=== PATIENT | male | born 1950 | race Caucasian/White ===

== ENCOUNTER 2016-08-05 10:25 | Day surgery (SDC) | payer BC ==
[2016-08-03 15:03] VITALS: BMI 37.8
[~2016-08-05 10:25] MED LIST: LACTATED RINGERS 1,000 ML IV SCH; LIDOCAINE 1% 20 ML VIAL (10MG/ML) FOR IV START INTRADERMA PRN
[2016-08-05 11:15] VITALS: TEMP 97.3
[2016-08-05] MEDS ORDERED: PROPOFOL 10 MG/ML 20 ML VIAL IV ONE (11:38)
--- NOTE | 2016-08-05 11:56 | P.PCN ---
Date of Procedure: 08/05/16 Procedure(s) Performed: BRIEF HISTORY: Patient is a 65-year-old pleasant white male, scheduled for an elective colonoscopy as a part of evaluation of prior history of colon polyps. Last colonoscopy was in 2010. PROCEDURE PERFORMED: Colonoscopy. PREOPERATIVE DIAGNOSIS: History of colon polyps. IV sedation per Anesthesia. PROCEDURE: After informed consent was obtained, the patient, was brought into the endoscopy unit. IV sedation was administered by Anesthesia under continuous monitoring. Digital rectal examination was normal. Initially the Olympus CF- 160 flexible video colonoscope was then inserted in the rectum, gradually advanced into the cecum without any difficulty. Careful examination was performed as the scope was gradually being withdrawn. Ileocecal valve and the appendiceal orifice were visualized and appeared normal. Prep was excellent. Mucosa of the cecum, ascending colon, transverse colon, descending colon, sigmoid colon, and rectum appeared normal. Moderate left-sided diverticulosis seen. Retroflexion was performed in the rectum and small internal hemorrhoids were seen. The patient tolerated the procedure well. IMPRESSION: Normal-appearing colon from rectum to cecum with no evidence of colorectal neoplasia . Moderate sigmoid diverticulosis. Small internal hemorrhoids. RECOMMENDATIONS: Findings of this examination were discussed with the patient as well as his family. He was advised to have a repeat screening colonoscopy in 5 years because of the prior history of colon polyps..
[2016-08-05 12:23] VITALS: BP 118/77; PULSE 78; RESP 18
== END 2016-08-05 12:25 | disposition home or self-care (01) ==
LOC: ORWHC2ENDO 10:25
PROVIDERS: ATTEND Internal Medicine Gastroenterology
DX: Z12.11 Encounter for screening for malignant neoplasm of colon (principal); K57.30 Diverticulosis of large intestine without perforation or abscess without bleeding; K64.8 Other hemorrhoids; Z86.010 Personal history of colon polyps; I10 Essential (primary) hypertension; E07.9 Disorder of thyroid, unspecified; Z79.899 Other long term (current) drug therapy; Z91.041 Radiographic dye allergy status
CPT/HCPCS: J2704; G0105

== ENCOUNTER → 2018-03-02 | Outpatient (CLI) | payer MEDICARE, OTHER | LOC: LABWHC1 07:55 | PROVIDERS: ATTEND Internal Medicine Endocrinology, Diabetes & Metabolism | DX: E03.9 Hypothyroidism, unspecified (principal); E04.2 Nontoxic multinodular goiter; E83.52 Hypercalcemia | CPT/HCPCS: 36415; 82947; 82950 ==

== ENCOUNTER 2021-10-17 07:30 | Inpatient (IN) | payer MEDICARE, OTHER ==
[2021-10-14 15:39] VITALS: BMI 34.7
--- NOTE | 2021-10-16 15:57 | P.PN ---
Progress Note - Text Direct admit to [address] [place] [address] on October 17, for dofetilide loading for management of atrial fibrillation Plan BMP, magnesium, TSH upon arrival Twelve-lead EKG upon arrival Call Dr. Cummings results Dofetilide to start at 6 PM on Wednesday Continue patient's home medications including anticoagulation Follow dofetilide protocol Please give patient dofetilide education sheet repair by Dr. Cummings On Wednesday the October Electrical cardioversion in the recovery room Patient will remain nothing by mouth except medications He will get his dofetilide on time at 6 AM on Wednesday He will get his ELIQUIS at 6 AM on Wednesday No medications will be held
[2021-10-17] MEDS ORDERED: MAGNESIUM SULFATE-D5W PMX 1 GM in DEXTROSE/WATER 1 100ML.BAG IVPB PRN (13:15)
[2021-10-17 13:43] LABS: INR 1.3 (<1.2); Prothrombin Time 13.3 sec (9.0-12.0)
[2021-10-17 13:50] LABS: African American GFR (CKD) 84 (>60 ml/min/1.73 sqM); Anion Gap 1 mmol/L; Blood Urea Nitrogen 10 mg/dL (9-20); Calcium 10.4 mg/dL (8.4-10.2); Carbon Dioxide 32 mmol/L (22-30); Chloride 103 mmol/L (98-107); Glucose 130 mg/dL (74-99); Magnesium 1.9 mg/dL (1.6-2.3); Non-African American GFR(CKD) 73 (>60 ml/min/1.73 sqM); Potassium 4.2 mmol/L (3.5-5.1); Sodium 136 mmol/L (137-145)
[2021-10-17] MEDS: SODIUM CHLORIDE 0.9% 1,000 ML IV SCH ×3 (14:26→17:09)
[2021-10-17] MEDS: DOFETILIDE 250 MCG CAP PO SCH (17:55)
[2021-10-17] MEDS: RIVAROXABAN 20 MG TAB PO SCH (20:15)
[2021-10-17] MEDS: METOPROLOL TARTRATE 25 MG TAB PO SCH (20:15)
[2021-10-17] MEDS: LATANOPROST 0.005% OPHTH DROPS 2.5 ML BTL BOTH EYES SCH (20:16)
[2021-10-18] MEDS: LEVOTHYROXINE 25 MCG TAB PO SCH (06:37)
[2021-10-18] MEDS: DOFETILIDE 250 MCG CAP PO SCH ×2 (06:37→18:15)
[2021-10-18 08:27] LABS: Calcium 10.4 mg/dL (8.4-10.2); Potassium 4.1 mmol/L (3.5-5.1)
[2021-10-18] MEDS ORDERED: FUROSEMIDE 40 MG TAB PO SCH (09:00)
[2021-10-18] MEDS: MAGNESIUM OXIDE 400 MG TAB PO SCH (09:03)
[2021-10-18] MEDS: METOPROLOL TARTRATE 25 MG TAB PO SCH ×2 (09:03→20:19)
[2021-10-18] MEDS: SPIRONOLACTONE 25 MG TAB PO SCH (09:03)
[2021-10-18] MEDS: LOSARTAN 50 MG TAB PO SCH (09:03)
[2021-10-18] MEDS: FUROSEMIDE 20 MG TAB PO SCH (09:03)
--- NOTE | 2021-10-18 12:16 | P.HPCAR ---
History of Present Illness This is Dr. Cummings dictating an H/P on this patient The patient was interviewed and examined IMPRESSION / ASSESSMENT: Persistent symptomatic atrial fibrillation with tiredness and fatigue Failed electrical cardioversion Global hypokinesis ejection fraction 45% Interstitial lung disease History of pulmonary embolism and recent diagnosis of DVT Normal renal function normal electrolytes normal baseline QT interval PLAN: Admitted for excisional dofetilide as an inpatient Monitor QT interval and renal function and electrolytes Possible Electrical cardioversion after 3-4 doses of dofetilide Reduce metoprolol to 25 mg twice daily Reduce Lasix to 20 mg by mouth daily Add spironolactone 25 mg by mouth daily Initiate dofetilide 250 g twice daily HPI Patient's main complaint is tiredness and fatigue Increasing shortness of breath since last year He is undergone electrical cardioversion but was unsuccessful in [facility] ROS: No fever chills or rigors, no cough, phlegm or expectoration, no nausea, vomiting or diarrhea, no hematuria, dysuria, no musculoskeletal complaints, no strokes or seizures, no skin lesions. EXAMINATION: 123/69 128/82, afebrile Pulse rate in the 60s Normal respirations Heart sounds S1 and S2 are irregular but normal Breath sounds are reduced bilaterally no rhonchi no crackles Abdomen is soft REVIEW OF LABS, ECG & MEDICAL DATA Sodium 136, potassium 4.1, BUN 10 and creatinine 1.0 Calcium 10.4 TSH normal at 1.2 Magnesium 2.0 Physical Exam Vitals: Vital Signs Temp Pulse Resp BP Pulse Ox 10/18/21 09:00 98 F 75 16 128/82 95 10/18/21 04:54 97.4 F L 62 16 140/79 95 10/18/21 01:40 67 16 10/17/21 23:32 97.5 F L 67 16 123/69 95 10/17/21 20:10 97.8 F 65 18 141/81 96 10/17/21 13:08 97.6 F 71 17 142/76 96 Intake and Output 10/17/21 10/18/21 10/18/21 22:59 06:59 14:59 Intake Total 540 200 Balance 540 200 Intake: Oral 540 200 Other: Voiding Method Toilet Toilet Toilet Weight 120.9 kg Past Medical History Past Medical History: Atrial Fibrillation, Cancer, Deep Vein Thrombosis (DVT), Eye Disorder, Hypertension, Osteoarthritis (OA), Pulmonary Embolus (PE), Thyroid Disorder Additional Past Medical History / Comment(s): glaucoma., hx of dvt and pe Apr 2021., back pain states left hip-needs replacement, hx squamous cell cancer. S [facility]. History of Any Multi-Drug Resistant Organisms: None Reported Past Surgical History: Hernia Repair, Tonsillectomy Additional Past Surgical History / Comment(s): colonoscopy, multiple mohs procedures. Past Anesthesia/Blood Transfusion Reactions: No Reported Reaction Past Psychological History: No Psychological Hx Reported Smoking Status: Former smoker Past Alcohol Use History: Daily Additional Past Alcohol Use History / Comment(s): quit smoking 11-12 yrs ago (2009), hx of 1ppd, started smoking in his 's. drinks 4 oz liquor daily. Past Drug Use History: None Reported - Past Family History Mother Family Medical History: No Reported History Physical Examination Vital Signs Temp Pulse Resp BP Pulse Ox 10/18/21 09:00 98 F 75 16 128/82 95 10/18/21 04:54 97.4 F L 62 16 140/79 95 10/18/21 01:40 67 16 10/17/21 23:32 97.5 F L 67 16 123/69 95 10/17/21 20:10 97.8 F 65 18 141/81 96 10/17/21 13:08 97.6 F 71 17 142/76 96 Intake and Output 10/17/21 10/18/21 10/18/21 22:59 06:59 14:59 Intake Total 540 200 Balance 540 200 Intake: Oral 540 200 Other: Voiding Method Toilet Toilet Toilet Weight 120.9 kg Results 10/18/21 07:17 Coagulation 10/17/21 Range/Units 13:18 PT 13.3 H (9.0-12.0) sec Comprehensive Metabolic Panel 10/17/21 10/18/21 Range/Units 13:18 07:17 Sodium 136 L 136 L (137-145) mmol/L Potassium 4.2 4.1 (3.5-5.1) mmol/L Chloride 103 101 (98-107) mmol/L Carbon Dioxide 32 H 32 H (22-30) mmol/L BUN 10 10 (9-20) mg/dL Creatinine 1.05 1.00 (0.66-1.25) mg/dL Glucose 130 H 108 H (74-99) mg/dL Calcium 10.4 H 10.4 H (8.4-10.2) mg/dL Current Medications Generic Name Dose Route Start Last Admin Trade Name Freq PRN Reason Stop Dose Admin Dofetilide 250 mcg 10/17/21 18:00 10/18/21 06:37 Dofetilide 250 Mcg Cap PO 250 mcg Q12HR@0600,1800 KAYLEEN Administration Furosemide 20 mg 10/18/21 09:00 10/18/21 09:03 Furosemide 20 Mg Tab PO 20 mg DAILY KAYLEEN Administration Sodium Chloride 1,000 mls @ 20 mls/hr 10/16/21 16:00 10/17/21 16:19 Saline 0.9% IV Not Given .Q24H KAYLEEN Magnesium Sulfate/Dextrose 1 100 mls @ 100 mls/hr 10/17/21 13:15 gm/ IV Solution IVPB 10/23/21 23:00 ONCE PRN TIKOSYN PROTOCOL Sodium Chloride 1,000 mls @ 20 mls/hr 10/17/21 16:42 10/17/21 17:09 Saline 0.9% IV Not Given .Q24H KAYLEEN Latanoprost 1 drops 10/17/21 21:00 10/17/21 20:16 Latanoprost 0.005% Ophth Drops 2.5 Ml Btl BOTH EYES 1 drops HS KAYLEEN Administration Levothyroxine Sodium 25 mcg 10/18/21 06:30 10/18/21 06:37 Levothyroxine 25 Mcg Tab PO 25 mcg DAILY@0630 KAYLEEN Administration Losartan Potassium 50 mg 10/18/21 09:00 10/18/21 09:03 Losartan 50 Mg Tab PO 50 mg DAILY KAYLEEN Administration Magnesium Oxide 400 mg 10/18/21 09:00 10/18/21 09:03 Magnesium Oxide 400 Mg Tab PO 400 mg DAILY KAYLEEN Administration Metoprolol Tartrate 25 mg 10/17/21 21:00 10/18/21 09:03 Metoprolol Tartrate 25 Mg Tab PO 25 mg BID KAYLEEN Administration Rivaroxaban 20 mg 10/17/21 21:00 10/17/21 20:15 Rivaroxaban 20 Mg Tab PO 20 mg HS KAYLEEN Administration Protocol Spironolactone 25 mg 10/18/21 09:00 10/18/21 09:03 Spironolactone 25 Mg Tab PO 25 mg DAILY KAYLEEN Administration Intake and Output 10/17/21 10/18/21 10/18/21 22:59 06:59 14:59 Intake Total 540 200 Balance 540 200 Intake: Oral 540 200 Other: Voiding Method Toilet Toilet Toilet Weight 120.9 kg 10/18/21 07:17
[2021-10-18] MEDS: SODIUM CHLORIDE 0.9% 1,000 ML IV SCH ×3 (19:30→19:31)
[2021-10-18] MEDS: RIVAROXABAN 20 MG TAB PO SCH (20:19)
[2021-10-18] MEDS: LATANOPROST 0.005% OPHTH DROPS 2.5 ML BTL BOTH EYES SCH (20:19)
[2021-10-19] MEDS: DOFETILIDE 250 MCG CAP PO SCH (05:59)
[2021-10-19] MEDS: LEVOTHYROXINE 25 MCG TAB PO SCH (05:59)
[2021-10-19] MEDS: RIVAROXABAN 20 MG TAB PO SCH ×2 (06:40→21:40)
[2021-10-19 07:40] LABS: Calcium 10.4 mg/dL (8.4-10.2); Magnesium 2.1 mg/dL (1.6-2.3); Potassium 3.8 mmol/L (3.5-5.1)
[2021-10-19] MEDS: METOPROLOL TARTRATE 25 MG TAB PO SCH ×2 (08:21→21:43)
[2021-10-19] MEDS: LOSARTAN 50 MG TAB PO SCH (08:21)
[2021-10-19] MEDS: MAGNESIUM OXIDE 400 MG TAB PO SCH (08:21)
[2021-10-19] MEDS ORDERED: SODIUM CHLORIDE 0.9% 1,000 ML IV ONE (08:49)
[2021-10-19] MEDS ORDERED: PROPOFOL 10 MG/ML 20 ML VIAL IV ONE (08:53)
[2021-10-19] MEDS ORDERED: MAGNESIUM SULFATE-D5W PMX 1 GM in DEXTROSE/WATER 1 100ML.BAG IVPB ONE (09:44)
[2021-10-19] MEDS: SPIRONOLACTONE 25 MG TAB PO SCH (10:29)
[2021-10-19] MEDS: FUROSEMIDE 20 MG TAB PO SCH (10:29)
[2021-10-19] MEDS: SODIUM CHLORIDE 0.9% 1,000 ML IV SCH ×3 (10:31→17:53)
--- NOTE | 2021-10-19 12:28 | P.EPPROC ---
- EP Procedure Note Electrophysiology Procedure Note: Diagnosis Persistent symptomatically atrial fibrillation, currently on dofetilide 250 g twice daily Procedure A 200 J biphasic shock in the AP configuration was unsuccessful in restoring sinus rhythm A 400 J shock using 2 defibrillators simultaneously successfully restored sinus rhythm Patient tolerated the procedure well without any acute complications Follow-up twelve-lead EKG showed sinus rhythm with the absolute QT interval of about 510 ms
--- NOTE | 2021-10-19 12:34 | P.PN ---
Subjective Patient was seen after the electrical cardioversion He has recovered well He's had no arrhythmias His heart rate is in the 50s I had already reduce the dose of beta blockers Blood pressures in the normal range Heart sounds is close to normal Breath sounds are clear His absolute QT interval is prolonged to about 510 ms He is on dofetilide 250 g twice daily Impression Persistent atrial fibrillation Currently on dofetilide 251 g twice daily Prolonged QT interval of 510 ms post-cardioversion if Plan Reduce dofetilide dose to 125 mg twice daily Continue ELIQUIS Stop Lasix Continue spironolactone Give 1 dose of IV magnesium 1 g Continue to follow QT interval and electrolytes on a daily basis Objective - Vital Signs Vital signs: Vital Signs Temp 98 F 10/19/21 09:13 Pulse 48 L 10/19/21 09:47 Resp 16 10/19/21 09:47 BP 133/74 10/19/21 09:47 Pulse Ox 96 10/19/21 09:47 FiO2 Intake & Output 10/18/21 10/19/21 10/19/21 18:59 06:59 18:59 Intake Total 300 0 Balance 300 0 Weight 119.4 kg Intake: IV 0 Intake, IV Titration 20 Amount Sodium Chloride 0.9% 1, 20 000 ml @ 20 mls/hr IV . Q24H [facility] Rx#:[id number] Oral 280 Other: Voiding Method Toilet Toilet Toilet # Voids 1 0 2 - Labs CBC & Chem 7: 10/19/21 06:58 Labs: Abnormal Lab Results - Last 24 Hours (Table) 10/19/21 Range/Units 06:58 Glucose 112 H (74-99) mg/dL Calcium 10.4 H (8.4-10.2) mg/dL
[2021-10-19] MEDS: DOFETILIDE 125 MCG CAP PO SCH (17:51)
[2021-10-19] MEDS: LATANOPROST 0.005% OPHTH DROPS 2.5 ML BTL BOTH EYES SCH (21:40)
[2021-10-20] MEDS: DOFETILIDE 125 MCG CAP PO SCH ×2 (05:57→17:34)
[2021-10-20] MEDS: LEVOTHYROXINE 25 MCG TAB PO SCH (05:57)
[2021-10-20 08:24] LABS: African American GFR (CKD) >90 (>60 ml/min/1.73 sqM); Anion Gap 6 mmol/L; Blood Urea Nitrogen 11 mg/dL (9-20); Calcium 10.1 mg/dL (8.4-10.2); Carbon Dioxide 28 mmol/L (22-30); Chloride 103 mmol/L (98-107); Glucose 109 mg/dL (74-99); Magnesium 2.2 mg/dL (1.6-2.3); Non-African American GFR(CKD) 82 (>60 ml/min/1.73 sqM); Potassium 3.8 mmol/L (3.5-5.1); Sodium 137 mmol/L (137-145)
[2021-10-20] MEDS: SPIRONOLACTONE 25 MG TAB PO SCH (08:35)
[2021-10-20] MEDS: LOSARTAN 50 MG TAB PO SCH (08:35)
[2021-10-20] MEDS: METOPROLOL TARTRATE 25 MG TAB PO SCH ×2 (08:35→21:33)
[2021-10-20] MEDS: MAGNESIUM OXIDE 400 MG TAB PO SCH (08:35)
[2021-10-20] MEDS ORDERED: SPIRONOLACTONE 25 MG TAB PO STA (10:04)
[2021-10-20] MEDS: SODIUM CHLORIDE 0.9% 1,000 ML IV SCH ×3 (10:04→10:05)
--- NOTE | 2021-10-20 11:20 | P.PN ---
Subjective Patient is resting comfortably in a chair No dizziness lightheadedness no undue shortness of breath at night no chest pain On examination Afebrile 97F pulse rate in the 50s and 60s Blood pressure 128/72 mmHg Heart sounds are regular normal no murmurs or gallops or rub Breath sounds are clear no rhonchi no crackles No lower extremity edema Labs interpreted Sodium 137 potassium 3.8, BUN 11 and creatinine 0.95 NT proBNP 272 TSH 1.2 Renal function normal Twelve-lead EKG today shows sinus mechanism with an absolute QT interval of 440 ms Impression Long-standing persistent atrial fibrillation Dofetilide initiation as an inpatient QT prolongation with 250 g of dofetilide, QT absolute was found and 10 ms On 125 g twice daily absolute QT interval is now at 440 ms Suggest Continue dofetilide at 125 g twice daily Increase spironolactone to 50 mg by mouth daily Continue Xarelto Continue metoprolol but at a low dose of 25 mg twice daily Continue losartan 50 mrem daily Continue levothyroxine 25 g by mouth daily Follow QT interval and BMP and magnesium Objective - Vital Signs Vital signs: Vital Signs Temp 97 F L 10/20/21 09:00 Pulse 73 10/20/21 09:00 Resp 16 10/20/21 09:00 BP 145/81 10/20/21 09:00 Pulse Ox 97 10/20/21 09:00 FiO2 Intake & Output 10/19/21 10/20/21 10/20/21 18:59 06:59 18:59 Intake Total 550 400 240 Balance 550 400 240 Weight 119.4 kg Intake: IV 0 Oral 550 400 240 Other: Voiding Method Toilet Toilet Toilet # Voids 2 2 - Labs CBC & Chem 7: 10/20/21 07:38 Labs: Abnormal Lab Results - Last 24 Hours (Table) 10/20/21 Range/Units 07:38 Glucose 109 H (74-99) mg/dL
[2021-10-20] MEDS: RIVAROXABAN 20 MG TAB PO SCH (21:28)
[2021-10-20] MEDS: LATANOPROST 0.005% OPHTH DROPS 2.5 ML BTL BOTH EYES SCH (21:33)
[2021-10-21 03:53] VITALS: RESP 17
[2021-10-21] MEDS: DOFETILIDE 125 MCG CAP PO SCH (06:29)
[2021-10-21] MEDS: LEVOTHYROXINE 25 MCG TAB PO SCH (06:29)
[2021-10-21 08:36] LABS: African American GFR (CKD) >90 (>60 ml/min/1.73 sqM); Anion Gap 3 mmol/L; Blood Urea Nitrogen 9 mg/dL (9-20); Calcium 10.3 mg/dL (8.4-10.2); Carbon Dioxide 30 mmol/L (22-30); Chloride 104 mmol/L (98-107); Glucose 125 mg/dL (74-99); Magnesium 2.2 mg/dL (1.6-2.3); Non-African American GFR(CKD) 80 (>60 ml/min/1.73 sqM); Potassium 4.1 mmol/L (3.5-5.1); Sodium 137 mmol/L (137-145)
[2021-10-21 08:49] VITALS: BP 147/85; PULSE 65; TEMP 97.4
[2021-10-21] MEDS: MAGNESIUM OXIDE 400 MG TAB PO SCH (08:50)
[2021-10-21] MEDS: METOPROLOL TARTRATE 25 MG TAB PO SCH (08:50)
[2021-10-21] MEDS: LOSARTAN 50 MG TAB PO SCH (08:51)
[2021-10-21] MEDS ORDERED: SPIRONOLACTONE 25 MG TAB PO SCH (09:00)
--- NOTE | 2021-10-21 11:38 | P.DS ---
Providers Date of admission: 10/17/21 12:17 Attending physician: Naseem Cummings Primary care physician: Edwin Tray [facility] Course: Patient is doing well. No chest discomfort no dizziness no lightheadedness He is not short of breath when he walks on the hallways now His heart rate 7 the 60s Breath sounds are clear no rhonchi no crackles Heart sounds S1 and S2 are normal no murmurs or gallops or rub No lower extremity edema Labs reviewed Sodium 137 potassium 4.1 BUN 9 and creatinine 0.98 Magnesium 2.2 Impression Persistent symptomatic atrial fibrillation Status post inpatient initiation of dofetilide Electrical cardioversion after 4 doses QT was prolonged on 250 g of dofetilide following successful electrical cardioversion Dose of dofetilide was reduced to 125 g twice daily His QT interval yesterday was 440 ms Today it is between 420-440 ms His electrolytes and normal renal function is stable He is able to ambulate more freely without getting tired and short of breath Plan Discharge home today on dofetilide 125 mg twice daily Spironolactone 50 mg by mouth daily, mag oxide 400 mg daily Higher dose of losartan 75 mg by mouth daily Low dose of metoprolol tartrate 25 mg twice daily Add a very detailed discussion with him regarding the use of dofetilide and its does and don'ts A full education was provided by me personally for greater than 30 minutes in addition to this evaluation Discharge home Follow Dr. Mitchell in 1 week Follow-up with Dr. Cummings in 3 months All prescriptions were provided 1 week supply of dofetilide was provided Discussed with the nurse Plan - Discharge Summary Discharge Rx Participant: Yes New Discharge Prescriptions: New RX: Losartan [Cozaar] 75 mg PO DAILY #90 tab RX: Spironolactone 50 mg PO DAILY #90 tablet RX: Magnesium Oxide 400 mg PO DAILY #90 tablet RX: Metoprolol Tartrate 25 mg PO BID #180 tab Dofetilide [Tikosyn] 125 mcg PO Q12HR #14 cap Discontinued Metoprolol Tartrate [Lopressor] 50 mg PO BID Losartan [Cozaar] 50 mg PO DAILY No Action Latanoprost Ophth [Xalatan 0.005%] 1 drops BOTH EYES HS Levothyroxine Sodium [Synthroid] 25 mcg PO DAILY Dorzolamide-Timolol (Unkn Dose 1 drop BOTH EYES BID Cholecalciferol (Vitamin D3) [Vitamin D3 (125 MCG = 5,000 IU)] 125 mcg PO DAILY Rivaroxaban [Xarelto] 20 mg PO HS RX: Folic Acid 0.8 mg PO DAILY Cyanocobalamin (Vitamin B-12) [Vitamin B-12] 1,000 mcg PO DAILY Discharge Medication List Latanoprost Ophth [Xalatan 0.005%] 1 drops BOTH EYES HS 08/03/16 [History] Levothyroxine Sodium [Synthroid] 25 mcg PO DAILY 08/03/16 [History] Cholecalciferol (Vitamin D3) [Vitamin D3 (125 MCG = 5,000 IU)] 125 mcg PO DAILY 10/14/21 [History] Cyanocobalamin (Vitamin B-12) [Vitamin B-12] 1,000 mcg PO DAILY 10/14/21 [History] Dorzolamide-Timolol (Unkn Dose 1 drop BOTH EYES BID 10/14/21 [History] RX: Folic Acid 0.8 mg PO DAILY 10/14/21 [History] Rivaroxaban [Xarelto] 20 mg PO HS 10/14/21 [History] Dofetilide [Tikosyn] 125 mcg PO Q12HR #14 cap 10/21/21 [Rx] RX: Losartan [Cozaar] 75 mg PO DAILY #90 tab 10/21/21 [Rx] RX: Magnesium Oxide 400 mg PO DAILY #90 tablet 10/21/21 [Rx] RX: Metoprolol Tartrate 25 mg PO BID #180 tab 10/21/21 [Rx] RX: Spironolactone 50 mg PO DAILY #90 tablet 10/21/21 [Rx] Follow up Appointment(s)/Referral(s): Bing Mitchell MD [STAFF PHYSICIAN] - 1 Week (Spoke to salon receptionist. Office will call you with appointment time) Patient Instructions/Handouts: Cardioversion (DC) Discharge Disposition: HOME SELF-CARE
== END 2021-10-21 12:29 | disposition home or self-care (01) | DRG 309 ==
LOC: 3SCARD 12:17
PROVIDERS: ADMIT Internal Medicine Clinical Cardiac Electrophysiology; ATTEND Internal Medicine Clinical Cardiac Electrophysiology
PROC: B246ZZ4 Ultrasonography of Right and Left Heart, Transesophageal (ICD-10-PCS; 2021-10-19)
PROC: 5A2204Z Restoration of Cardiac Rhythm, Single (ICD-10-PCS; principal; 2021-10-19 09:00)
DX: I48.11 Longstanding persistent atrial fibrillation (principal); J84.9 Interstitial pulmonary disease, unspecified; I10 Essential (primary) hypertension; I45.81 Long QT syndrome; Z20.822 Contact with and (suspected) exposure to COVID-19; Z79.01 Long term (current) use of anticoagulants; Z79.899 Other long term (current) drug therapy; Z86.711 Personal history of pulmonary embolism; Z86.718 Personal history of other venous thrombosis and embolism; Z87.891 Personal history of nicotine dependence; Z91.041 Radiographic dye allergy status; Z91.013 Allergy to seafood; Z79.890 Hormone replacement therapy
CPT/HCPCS: 80048; 83735; 83880; 84443; 85610; 87635; 92960

== ENCOUNTER 2022-09-04 09:15 | Day surgery (SDC) | payer MEDICARE, OTHER ==
[2022-09-03 09:58] VITALS: BMI 34.7
[2022-09-04] MEDS ORDERED: LACTATED RINGERS 1,000 ML IV ONE ×2 (09:38)
[2022-09-04] MEDS ORDERED: PROPOFOL 10 MG/ML 20 ML VIAL IV ONE (09:40)
[2022-09-04 09:41] VITALS: RESP 16; TEMP 96.9
--- NOTE | 2022-09-04 10:08 | P.PCN ---
Date of Procedure: 09/04/22 Procedure(s) Performed: BRIEF HISTORY: Patient is a 71-year-old pleasant white male scheduled for an elective colonoscopy as a part of evaluation of prior history of colon polyps. Last colonoscopy was 6 years ago. PROCEDURE PERFORMED: Colonoscopy with snare polypectomy. PREOPERATIVE DIAGNOSIS: History of colon polyps. IV sedation per Anesthesia. PROCEDURE: After informed consent was obtained, the patient, was brought into the endoscopy unit. IV sedation was administered by Anesthesia under continuous monitoring. Digital rectal examination was normal. Initially the Olympus CF-160 flexible video colonoscope was then inserted in the rectum, gradually advanced into the cecum without any difficulty. Careful examination was performed as the scope was gradually being withdrawn. Ileocecal valve and the appendiceal orifice were visualized and appeared normal. Prep was excellent. Mucosa of the cecum, ascending colon, transverse colon, descending colon, appeared normal. In the sigmoid colon there was a 5 limited polyp that was removed by snare polypectomy. Scattered left sided diverticulosis seen. Rest of the sigmoid colon, and rectum appeared normal. Retroflexion was performed in the rectum and no lesions were seen. The patient tolerated the procedure well. IMPRESSION: 5 mm distal sigmoid colon Polyp status post polypectomy Scattered diffuse diverticulosis RECOMMENDATIONS: Findings of this examination were discussed with the patient as well as his family. He was advised to follow with the biopsy results. If the biopsy reveals adenoma he can have a repeat colonoscopy in 5 years..
[2022-09-04 10:52] VITALS: BP 106/72; PULSE 65
== END 2022-09-04 11:03 | disposition home or self-care (01) ==
LOC: ORWHC2ENDO 09:15
PROVIDERS: ATTEND Internal Medicine Gastroenterology
DX: Z12.11 Encounter for screening for malignant neoplasm of colon (principal); D12.5 Benign neoplasm of sigmoid colon; K57.30 Diverticulosis of large intestine without perforation or abscess without bleeding; Z86.010 Personal history of colon polyps; Z79.899 Other long term (current) drug therapy
CPT/HCPCS: 88305; 45385; J2704

== ENCOUNTER → 2022-09-24 | Outpatient (CLI) | payer MEDICARE, OTHER | END | disposition home or self-care (01) | LOC: LABWHC1 12:46 | PROVIDERS: ATTEND Internal Medicine Hematology & Oncology | DX: Z53.9 Procedure and treatment not carried out, unspecified reason (principal) ==

== ENCOUNTER → 2023-03-05 | Outpatient (CLI) | payer MEDICARE, OTHER ==
[2023-03-05 10:35] LABS: AST 29 U/L (17-59); African American GFR (CKD) 78 (>60 ml/min/1.73 sqM); Albumin 4.3 g/dL (3.5-5.0); Albumin/Globulin Ratio 1.2; Alkaline Phosphatase 59 U/L (38-126); Anion Gap 14 mmol/L; Blood Urea Nitrogen 17 mg/dL (9-20); Calcium 10.9 mg/dL (8.4-10.2); Carbon Dioxide 20 mmol/L (22-30); Chloride 99 mmol/L (98-107); Globulin 3.7 g/dL; Glucose 221 mg/dL (74-99); Magnesium 1.9 mg/dL (1.6-2.3); Non-African American GFR(CKD) 68 (>60 ml/min/1.73 sqM); Potassium 4.8 mmol/L (3.5-5.1); Sodium 133 mmol/L (137-145); Total Bilirubin 0.9 mg/dL (0.2-1.3)
[2023-03-05 10:57] LABS: ALT 46 U/L (4-49)
--- NOTE | 2023-03-05 12:40 | CT ---
EXAMINATION TYPE: CT iac wo con DATE OF EXAM: 03/05/2023 COMPARISON: None HISTORY: UNSPECIFIED CHOLESTEATOMA,chronic sinusitis and possible salivary gland issues CT DLP: 142.70mGycm Automated exposure control for dose reduction was used. FINDINGS: The external auditory canals are patent bilaterally. Mastoid air cells show no evidence of abnormal opacification bilaterally. The middle ear ossicles are symmetric and unremarkable. There is no evidence of suspicious surrounding soft tissue density to suggest cholesteatoma. The scutum is preserved bilaterally. The cochlea and the semicircular canals are symmetric and unremarkable. Ves tibular aqueduct and internal carotid canal appear unremarkable. Temporomandibular joints are mainta ined bilaterally. Intracranial atherosclerotic changes involving the bilateral cavernous segment ICA. Carotid glands de monstrate no sizable lesion. Nasopharynx is symmetric. Degenerative changes of the cervical spine. There is mild mucosal thickening involving the maxillary sinus on the right. No air-fluid levels. Min imal inferior left maxillary sinus mucosal thickening. There is a nasal septal deviation. IMPRESSION: 1. Mild chronic sinusitis.
== END | disposition home or self-care (01) ==
LOC: RADCTMAIN 09:31
PROVIDERS: ATTEND Otolaryngology
DX: J32.9 Chronic sinusitis, unspecified (principal); Z13.9 Encounter for screening, unspecified; H71.90 Unspecified cholesteatoma, unspecified ear; H92.02 Otalgia, left ear; R22.1 Localized swelling, mass and lump, neck
CPT/HCPCS: 80053; 84443; 83735; 70491; 70480; 36415; Q9967

== ENCOUNTER → 2024-02-01 | Outpatient (CLI) | payer MEDICARE, OTHER ==
--- NOTE | 2024-02-01 14:35 | CT ---
EXAMINATION TYPE: CT sinus wo con DATE OF EXAM: 02/01/2024 COMPARISON: None HISTORY: Chronic sinusitis CT DLP: 624 mGycm CONTRAST: None The paranasal sinuses are examined in the axial plane at 2 mm thick sections. Reconstructed images i n the coronal plane were obtained. There is dental amalgam scatter artifact There is a retention cyst within the inferior lateral right maxillary sinus. The ethmoid air cells a re clear. The sphenoid sinuses are clear. The frontal sinuses are clear. The septum is evaluated. There is septal deviation to the right. Right septal spurring is noted. The ostiomeatal units are patent. Symmetrically of the brain appears to be present. Extra-axial spaces are prominent. IMPRESSION: 1. Right maxillary sinus retention cyst [facility], Workstation: [facility], 02/01/2024 2:33 PM
[2024-02-01 21:39] LABS: Alternaria alternata IgE <0.10 kU/L; Aspergillus fumagatus IgE <0.10 kU/L; Birch IgE <0.10 kU/L; Cat Epith & Dander IgE <0.10 kU/L; Cladosporian herbarum IgE <0.10 kU/L; Cockroach IgE <0.10 kU/L; Dermato. farinae IgE <0.10 kU/L; Dog Dander IgE <0.10 kU/L; Elm IgE <0.10 kU/L; Maple (Box Elder) IgE <0.10 kU/L; Oak IgE <0.10 kU/L; Ragweed,Common IgE <0.10 kU/L; Red Top (Bentgrass) IgE <0.10 kU/L
== END | disposition home or self-care (01) ==
LOC: RADCTMAIN 13:38
PROVIDERS: ATTEND Otolaryngology
CPT/HCPCS: 70486; 82785; 86003

== ENCOUNTER → 2024-03-25 | Outpatient (CLI) | payer MEDICARE, OTHER ==
[2024-03-25 13:49] LABS: BUN/Creat Ratio 16.31 Ratio (12.00-20.00); Blood Urea Nitrogen 21.2 mg/dL (9.0-27.0); Carbon Dioxide 24.4 mmol/L (21.6-31.8); Chloride 100 mmol/L (96-109); Glucose 153 mg/dL (70-110); Magnesium 1.8 mg/dL (1.5-2.4); Potassium 4.6 mmol/L (3.5-5.5); Sodium 134 mmol/L (135-145)
== END | disposition home or self-care (01) ==
LOC: LABWHC1 09:04
PROVIDERS: ATTEND Internal Medicine Clinical Cardiac Electrophysiology
DX: I48.91 Unspecified atrial fibrillation (principal)
CPT/HCPCS: 36415; 80048; 83735; 84443

== ENCOUNTER → 2024-08-22 | Outpatient (CLI) | payer MEDICARE, OTHER ==
[2024-08-22 15:44] LABS: BUN/Creat Ratio 14.29 Ratio (12.00-20.00); Calcium 10.4 mg/dL (8.7-10.3); Carbon Dioxide 25.1 mmol/L (21.6-31.8); Chloride 101 mmol/L (96-109); Glucose 136 mg/dL (70-110); Magnesium 1.7 mg/dL (1.5-2.4); Sodium 137 mmol/L (135-145)
== END | disposition home or self-care (01) ==
LOC: LABWHC1 10:08
PROVIDERS: ATTEND Internal Medicine Clinical Cardiac Electrophysiology
DX: I48.91 Unspecified atrial fibrillation (principal); Z79.899 Other long term (current) drug therapy
CPT/HCPCS: 36415; 80048; 83735